=== PATIENT | female | born 1985 | race Two or more races ===

== ENCOUNTER 2017-12-01 16:56 | Emergency (ER) | payer MEDICAID, OTHER ==
[~2017-12-01] VITALS: Ht 154.9 cm; Wt 72.6 kg
[~2017-12-01 16:56] MED LIST: NOR10T PO
[2017-12-01 17:20] VITALS: BP 111/78
[2017-12-01] MEDS ORDERED: HYDROcodone-ACET 5/325MG TAB PO ONE (21:15)
== END 2017-12-01 21:26 | disposition home or self-care (01) ==
LOC: ER 16:56
DX: R51 Headache (principal); M79.1 Myalgia
CPT/HCPCS: 70450

== ENCOUNTER 2017-12-02 21:59 | Emergency (ER) | payer MEDICAID, OTHER ==
[~2017-12-02] VITALS: Ht 154.9 cm; Wt 72.6 kg
[2017-12-02 22:13] VITALS: BP 122/70
[2017-12-03] MEDS ORDERED: PROMETHAZINE HCL 25 MG/ML 1ML IM ONE (03:45)
[2017-12-03] MEDS ORDERED: MEPERIDINE HCL (25 MG/ML) 1ML VIAL IM ONE (03:45)
== END 2017-12-03 04:44 | disposition home or self-care (01) ==
LOC: ER 21:59
DX: R51 Headache (principal)
CPT/HCPCS: 96372; 99284; J2175; J2550